=== PATIENT | female | born 1945 | race Caucasian/White ===

== ENCOUNTER → 2018-04-07 | Outpatient (CLI) | payer MEDICARE | END | disposition home or self-care (01) | LOC: LAB SHORT 14:30 → LAB 14:30 | DX: N39.0 Urinary tract infection, site not specified (principal) | CPT/HCPCS: 87077; 87086; 87186 ==

== ENCOUNTER → 2019-07-18 | Outpatient (CLI) | payer MEDICARE ==
[2019-07-20 14:32] LABS: Stool Occult Bld Immuno 1 Negative (NEGATIVE)
== END | disposition home or self-care (01) ==
LOC: LAB SHORT 09:45 → LAB 09:45
PROVIDERS: Nurse Practitioner Family
DX: Z12.11 Encounter for screening for malignant neoplasm of colon (principal); E78.01 Familial hypercholesterolemia
CPT/HCPCS: G0328

== ENCOUNTER → 2020-08-21 | Outpatient (CLI) | payer MEDICARE ==
[2020-08-29 11:07] LABS: Stool Occult Bld Immuno 1 Negative (NEGATIVE)
== END | disposition home or self-care (01) ==
LOC: LAB 14:15 → LAB SHORT 14:15
PROVIDERS: Nurse Practitioner Family
DX: Z12.11 Encounter for screening for malignant neoplasm of colon (principal)
CPT/HCPCS: 82274

== ENCOUNTER → 2020-08-30 | Outpatient (CLI) | payer MEDICARE | END | disposition home or self-care (01) | LOC: LAB SHORT 11:41 → PLD 11:41 | DX: D04.39 Carcinoma in situ of skin of other parts of face (principal) | CPT/HCPCS: 88305 ==

== ENCOUNTER → 2022-04-12 | Outpatient (CLI) | payer MEDICARE | END | disposition home or self-care (01) | LOC: LAB 08:45 | DX: E78.01 Familial hypercholesterolemia (principal) ==

== ENCOUNTER → 2023-07-04 | Outpatient (CLI) | payer MEDICARE ==
[2023-07-08 10:46] LABS: Stool Occult Bld Immuno 1 Negative (NEGATIVE)
== END | disposition home or self-care (01) ==
LOC: LAB SHORT 14:30 → LAB 14:30
PROVIDERS: Family Medicine
DX: Z12.11 Encounter for screening for malignant neoplasm of colon (principal)
CPT/HCPCS: G0328

== ENCOUNTER 2023-09-11 10:10 | Day surgery (SDC) | payer OTHER ==
[~2023-09-11] VITALS: Ht 160 cm; Wt 56.8 kg
[2023-09-11] MEDS ORDERED: BUPROPION HCL200 M1 PO (10:45)
[2023-09-11] MEDS ORDERED: Simvastatin20 MG PO (10:45)
[2023-09-11] MEDS ORDERED: AMLODIPINE BESYL5 MG PO (10:45)
[2023-09-11] MEDS ORDERED: ZOLOFT50 MG PO (10:46)
[2023-09-11 13:44] VITALS: BP 116/74
== END 2023-09-11 13:35 | disposition home or self-care (01) ==
LOC: ORSCSDS 10:10
PROVIDERS: Internal Medicine Gastroenterology
PROC: 0DBK8ZX Excision of Ascending Colon, Via Natural or Artificial Opening Endoscopic, Diagnostic (ICD-10-PCS; principal; 2023-09-11 11:30)
PROC: 0DBM8ZX Excision of Descending Colon, Via Natural or Artificial Opening Endoscopic, Diagnostic (ICD-10-PCS; principal; 2023-09-11 11:30)
PROC: 0DBP8ZX Excision of Rectum, Via Natural or Artificial Opening Endoscopic, Diagnostic (ICD-10-PCS; principal; 2023-09-11 11:30)
DX: Z12.11 Encounter for screening for malignant neoplasm of colon (principal); R19.5 Other fecal abnormalities; Z86.010 Personal history of colon polyps; D12.2 Benign neoplasm of ascending colon; D12.4 Benign neoplasm of descending colon; K63.5 Polyp of colon; K57.30 Diverticulosis of large intestine without perforation or abscess without bleeding; K64.8 Other hemorrhoids; I10 Essential (primary) hypertension; Z79.899 Other long term (current) drug therapy
CPT/HCPCS: 88305; J2704; J7120

== ENCOUNTER → 2024-06-03 | Outpatient (CLI) | payer OTHER ==
[~2024-06-03] MED LIST: AMLODIPINE BESYL5 MG PO; BUPROPION HCL200 M1 PO; Simvastatin20 MG PO; ZOLOFT50 MG PO
[2024-06-03 15:26] LABS: BASOPHILS ABSOLUTE AUTO 0.03 K/mm3 (0.00-0.23); BASOPHILS PERCENT AUTO 1 % (0-2); EOSINOPHILS ABSOLUTE AUTO 0.12 K/mm3 (0.00-0.68); EOSINOPHILS PERCENT AUTO 3 % (0-6); Hematocrit 39.2 % (33.0-51.0); IMMATURE GRAN ABSOLUTE AUTO 0.01 K/mm3 (0.00-0.10); IMMATURE GRAN PERCENT AUTO 0 % (0-1); LYMPHOCYTES ABSOLUTE AUTO 1.17 K/mm3 (0.84-5.20); LYMPHOCYTES PERCENT AUTO 25 % (21-46); MONOCYTES ABSOLUTE AUTO 0.35 K/mm3 (0.16-1.47); MONOCYTES PERCENT AUTO 7 % (4-13); Mean Corpuscular HGB 31.6 pg (26.0-34.0); Mean Corpuscular HGB Conc 33.2 g/dL (31.5-36.5); Mean Corpuscular Volume 95 fL (80-100); Mean Platelet Volume 10.8 fL (9.1-12.4); NEUTROPHILS ABSOLUTE AUTO 3.04 K/mm3 (1.96-9.15); NEUTROPHILS PERCENT AUTO 65 % (41-73); Platelet Count 183 K/mm3 (150-400); RDW Coefficient Variation 12.9 % (11.7-14.2); Red Blood Cell Count 4.12 M/mm3 (3.80-5.20); White Blood Cell Count 4.72 K/mm3 (4.00-11.30)
[2024-06-03 15:53] LABS: Alanine Aminotransfer (ALT/SGP 35 U/L (12-78); Albumin, Blood 4.1 g/dL (3.4-5.0); Albumin/Globulin Ratio 1.6 (0.8-1.8); Alk Phos 105 U/L (50-136); Anion Gap 9 mmol/L (3-11); Aspartate Aminotrans (AST/SGOT 27 U/L (12-37); Bilirubin, Total 0.6 mg/dL (0.1-1.0); Blood Urea Nitrogen 18 mg/dL (8-24); Bun/Creatinine Ratio 19.2 (12.0-20.0); CHOL/HDL RATIO 2.2; CO2, Blood 29 mmol/L (21-32); Calcium, Blood 9.2 mg/dL (8.5-10.1); Chloride, Blood 108 mmol/L (98-108); Cholesterol 179 mg/dL (50-200); Creatinine, Blood 0.94 mg/dL (0.40-1.00); Globulin, Blood 2.5 g/dL (2.2-4.0); Glomerular Filtration Rate 63 (60-); Glucose, Blood 102 mg/dL (70-99); HDL Cholesterol 82 mg/dL (>39); LDL/HDL RATIO 0.8; Low Density Lipoprotein Chol 69 mg/dL (0-110); Potassium, Blood 4.4 mmol/L (3.5-5.5); Sodium, Blood 142 mmol/L (136-145); Total Protein, Blood 6.6 g/dL (6.4-8.2); Triglycerides 140 mg/dL (30-160); Very Low Density Lipoprot Chol 28 mg/dL (6-32)
== END ==
LOC: LAB SHORT 12:49 → LAB 12:49
PROVIDERS: Internal Medicine
DX: I10 Essential (primary) hypertension (principal); M85.89 Other specified disorders of bone density and structure, multiple sites
CPT/HCPCS: 80053; 80061; 84443; 85025